=== PATIENT | male | born 1950 | race Caucasian/White ===

== ENCOUNTER 2018-11-17 16:30 | Emergency (ER) | payer MEDICARE, OTHER ==
[2018-11-17] MEDS ORDERED: hydrALAzine 20 MG INJ IV (17:30)
[2018-11-17 17:34] LABS: ADD MAN DIFF? NO
[2018-11-17 17:36] LABS: BASOPHILS % 0.3 % (0.0-2.0); EOSINOPHILS # 0.1 10^3/ul (0.0-0.5); EOSINOPHILS % 0.8 % (0.0-7.0); HEMATOCRIT 40.8 % (42.0-52.0); HEMOGLOBIN 13.9 g/dl (14.0-18.0); LYMPHOCYTES # 1.4 10^3/ul (0.8-2.9); MEAN CORPUSCULAR HEMOGLOBIN 30.8 pg (29.0-33.0); MEAN CORPUSCULAR HGB CONC 34.1 g/dl (32.0-37.0); MEAN CORPUSCULAR VOLUME 90.5 fl (82.0-101.0); MEAN PLATELET VOLUME 9.8 fl (7.4-10.4); MONOCYTE # 0.4 10^3/ul (0.3-0.9); MONOCYTES % 6.8 % (0.0-11.0); NEUTROPHIL # 4.3 10^3/ul (1.6-7.5); NEUTROPHILS % 69.8 % (39.0-77.0); PLATELET COUNT 197 10^3/UL (140-415); RED BLOOD COUNT 4.51 10^6/ul (4.70-6.10)
[2018-11-17 17:36] LABS: WHITE BLOOD COUNT 6.2 10^3/ul (4.8-10.8)
[2018-11-17 17:54] LABS: ANION GAP 9 (5-13); BLOOD UREA NITROGEN 19 mg/dl (7-20); CALCIUM 9.4 mg/dl (8.4-10.2); CARBON DIOXIDE 27 mmol/L (21-31); CHLORIDE 102 mmol/L (97-110); CREATININE 0.86 mg/dl (0.61-1.24); Estimated GFR > 60 mL/min (>60); GLUCOSE 97 mg/dl (70-220); SODIUM 138 mmol/L (135-144)
[2018-11-17] MEDS: SOD CHLORIDE 0.9% 500 ML IV (18:04)
[2018-11-17 18:05] LABS: TROPONIN-I < 0.012 ng/ml (0.000-0.120)
[2018-11-17] MEDS: NICARDipine HCL 30 MG CAPSULE PO (19:21)
== END 2018-11-17 19:40 | disposition home or self-care (01) ==
LOC: E/R 16:30
DX: I10 Essential (primary) hypertension (principal); Z79.82 Long term (current) use of aspirin
CPT/HCPCS: 36415; 70450; 80048; 84484; 85025; 93005; 99285-25